=== PATIENT | male | born 1985 | race Caucasian/White ===

== ENCOUNTER 2019-07-02 16:18 | Outpatient (CLI) | payer OTHER, SELFPAY ==
--- NOTE | ~2019-07-02 | CT_ITS ---
EXAMINATION: CT sinus wo con DATE: 07/02/2019 16:38 INDICATION: Localized swelling, mass and lump at right maxilla for 4 months TECHNIQUE: Computed tomography (CT) of the paranasal sinuses was performed without contrast. Iterativ e reconstruction technique was employed. Exam dose: 226.99 mGy-cm total exam DLP. COMPARISON: None FINDINGS: There is moderate leftward bowing of the upper portion of the nasal septum. The nasal turbinates are moderately prominent and symmetric in size. There is prominent nodular mucoperiosteal thickening of both maxillary sinuses and patchy opacificati on of ethmoid air cells bilaterally. There is mild mucoperiosteal thickening primarily the inferomedi al aspect of both frontal sinuses. There is moderately prominent soft tissue thickening of the left sphenoid sinus and mild mucoperioste al right sphenoid sinus. There is opacification of the ostiomeatal units bilaterally. The mastoid air cells and middle and inner ear apparatus appear unremarkable bilaterally. IMPRESSION: Mucoperiosteal thickening of all paranasal sinuses, most prominent at the maxillary sinu ses, with nodular appearance suggesting possible polyps Opacification of bilateral ostiomeatal units Reviewed, dictated and finalized at [facility]. Reviewed, dictated and finalized at [facility]. IMPRESSION: Mucoperiosteal thickening of all paranasal sinuses, most prominent at the maxillary sinuses, with nodular appearance suggesting possible polyps Opacification of bilateral ostiomeatal units
== END 2019-07-02 16:19 | disposition home or self-care (01) ==
LOC: CHSIMG 16:21
PROVIDERS: PCP Family Medicine; Visit Provider Family Medicine
DX: R22.0 Localized swelling, mass and lump, head (principal)
CPT/HCPCS: 70486

== ENCOUNTER 2021-02-16 13:01 | Outpatient (CLI) | payer OTHER, SELFPAY ==
--- NOTE | ~2021-02-16 | US_ITS ---
US scrotum doppler INDICATION: Right testicular pain TECHNIQUE: Testicular sonogram utilizing grayscale and color Doppler FINDINGS: The testes are normal in size and appearance. No focal lesions are seen. The right testes measures 4.3 x 2.3 x 3.6 cm centimeters, and the left testis measures 4.1 x 2.5 x 2.7 cm cm. There is normal vascular flow to both testes. There is a 6 mm left epididymal cyst. The right epididymis is normal. There is no varicocele or hydrocele. IMPRESSION: 1. Left epididymal cyst measuring 6 mm. Otherwise, unremarkable testicular ultrasound. Reviewed, dictated and finalized at [facility]. IMPRESSION: 1. Left epididymal cyst measuring 6 mm. Otherwise, unremarkable testicular ult rasound.
== END 2021-02-16 13:02 | disposition home or self-care (01) ==
LOC: CHSIMG 13:04
PROVIDERS: PCP Family Medicine; Visit Provider Family Medicine
DX: N50.811 Right testicular pain (principal)
CPT/HCPCS: 76870; 93976